=== PATIENT | male | born 2000 | race Caucasian/White ===

== ENCOUNTER 2020-12-14 20:19 | Emergency (ER) | payer OTHER ==
[2020-12-14 20:30] VITALS: BP 116/75; PULSE 62; TEMP 97; BMI 29.0
== END 2020-12-14 21:22 | disposition home or self-care (01) ==
LOC: JER 20:19
DX: S09.90XA Unspecified injury of head, initial encounter (principal)
CPT/HCPCS: 99281-25

== ENCOUNTER 2021-08-22 23:57 | Emergency (ER) | payer OTHER ==
[2021-08-23 00:10] VITALS: BP 117/72; PULSE 88; TEMP 98.5; BMI 29.0
== END 2021-08-23 00:28 | disposition home or self-care (01) ==
LOC: FER 23:57
DX: H61.23 Impacted cerumen, bilateral (principal)
CPT/HCPCS: 99281-25

== ENCOUNTER 2022-05-17 22:15 | Emergency (ER) | payer OTHER ==
[2022-05-17 22:21] VITALS: BP 125/76; PULSE 92; RESP 16; TEMP 98.3; BMI 27.1
== END 2022-05-17 22:48 | disposition home or self-care (01) ==
LOC: FER 22:15
DX: T54.91XA Toxic effect of unspecified corrosive substance, accidental (unintentional), initial encounter (principal)
CPT/HCPCS: 99282-25

== ENCOUNTER 2024-07-16 11:52 | Emergency (ER) | payer OTHER ==
[2024-07-16 12:00] VITALS: BP 116/74; PULSE 92; RESP 18; TEMP 98.7; BMI 27.4
[2024-07-16] MEDS ORDERED: DIPHTH,PERTUSS(ACELL),TET 0.5 ML DISP.SYRIN IM ONE (13:16)
[2024-07-16] MEDS ORDERED: ACETAMINOPHEN 500 MG TABLET (FP) ONE (13:16)
[2024-07-16] MEDS: DIPHTH,PERTUSS(ACELL),TET 0.5 ML DISP.SYRIN IM ONE (13:43)
[2024-07-16] MEDS: ACETAMINOPHEN 500 MG TABLET (FP) PO ONE (13:44)
[2024-07-16] MEDS ORDERED: AMOX TR/POT CLAV 875MG/125MG TABLETS (FP) PO ONE (17:49)
== END 2024-07-16 18:22 | disposition home or self-care (01) ==
LOC: JER 11:52 → JERFT 11:52 → JER 18:22
PROC: 3E0234Z Introduction of Serum, Toxoid and Vaccine into Muscle, Percutaneous Approach (ICD-10-PCS; principal; 2024-07-16)
DX: S00.81XA Abrasion of other part of head, initial encounter (principal); S10.91XA Abrasion of unspecified part of neck, initial encounter; Z23 Encounter for immunization; Y04.2XXA Assault by strike against or bumped into by another person, initial encounter
CPT/HCPCS: 70450-TC; 70486-TC; 90471; 90715; 99283-25